=== PATIENT | male | born 1970 | race Caucasian/White ===

== ENCOUNTER 2017-07-18 13:01 | Emergency (ER) | payer OTHER ==
[2017-07-18 13:09] VITALS: RESP 18; O2SAT 100
--- NOTE | 2017-07-18 15:00 | C.PDOC ---
History Of Present Illness Pt was discharged from [facility] in [place], [place] today and was brought to [facility] to [place], but was left on the street. He then called 911 and EMS brought him here. He does not have any acute medical complaints. He only complains of chronic neuropathy symptoms. Time Seen by Provider: 07/18/17 13:10 Chief Complaint (Nursing): Medical Clearance History Per: Patient, EMS Onset/Duration Of Symptoms: Hrs (today) Current Symptoms Are (Timing): Still Present Severity: Mild Additional History Per: Prior Records Past Medical History Reviewed: Historical Data, Nursing Documentation, Vital Signs Vital Signs: Last Vital Signs Temp 98.9 F 07/18/17 13:06 Pulse 76 07/18/17 13:06 Resp 18 07/18/17 13:06 BP 109/75 07/18/17 13:06 Pulse Ox 100 07/18/17 13:06 - Medical History Other PMH: TBI Family History: States: Unknown Family Hx - Social History Hx Tobacco Use: Yes Hx Alcohol Use: Yes Hx Substance Use: No Review Of Systems Except As Marked, All Systems Reviewed And Found Negative. Constitutional: Negative for: Fever Cardiovascular: Negative for: Chest Pain Respiratory: Negative for: Cough, Shortness of Breath Gastrointestinal: Negative for: Vomiting, Abdominal Pain Neurological: Negative for: Seizures Psych: Negative for: Suicidal ideation Physical Exam - Physical Exam Appears: Non-toxic, No Acute Distress Skin: Normal Color, Warm, Dry Head: Atraumatic, Normacephalic Eye(s): bilateral: PERRL, EOMI Neck: Normal ROM, Supple Cardiovascular: Rhythm Regular Respiratory: Normal Breath Sounds, No Accessory Muscle Use Gastrointestinal/Abdominal: Soft, No Tenderness Extremity: Normal ROM Neurological/Psych: Oriented x3, Normal Motor ED Course And Treatment ECG: Interpreted By Me, Viewed By Me ECG Rhythm: Sinus Rhythm, Nonspecific Changes ECG Interpretation: No Acute Changes Rate From EC O2 Sat by Pulse Oximetry: 100 Pulse Ox Interpretation: Normal Progress Note: Pt will be transforted to [facility] by taxi. Reassessment Condition: Improved Disposition Counseled Patient/Family Regarding: Studies Performed, Diagnosis, Need For Followup - Disposition Referrals: Tyrel Ritter MD [Medical Doctor] - Nat Lora MD [Primary Care Provider] - Disposition: OTHER INSTITUTION Disposition Time: 15:04 Condition: STABLE Additional Instructions: Stay at a homeless long term. Follow up with your doctor. Return to the ER if you develop worsening of symptoms or if you have any other concerns. Forms: General Discharge Instructions - Clinical Impression Clinical Impression: Homelessness
[2017-07-18 16:17] VITALS: BP 131/60; PULSE 84; TEMP 98.5
--- NOTE | 2017-07-21 09:39 | CARD ---
APPROVED REPORT EKG Measurement Heart [id number] <Conclusion> Sinus bradycardia with sinus arrhythmia Otherwise normal ECG
== END 2017-07-18 16:16 | disposition designated cancer center or children's hospital (05) ==
LOC: C.ER 13:01
DX: Z59.0 Homelessness (principal)

== ENCOUNTER 2017-11-07 00:38 | Emergency (ER) | payer OTHER ==
--- NOTE | 2017-11-07 00:52 | C.PDOC ---
History Of Present Illness 47 year old male presents to the ED after he was not able to get into a alf and is looking for a place to stay. Patient was seen yesterday morning in the ED after being kicked out of his alf because of having lice, patient was showered and treated, Patient denied any physical complaints at this time. Time Seen by Provider: 11/07/17 00:51 Chief Complaint (Nursing): Medical Clearance History Per: Patient History/Exam Limitations: no limitations Onset/Duration Of Symptoms: Hrs Current Symptoms Are (Timing): Still Present Reports Recently: Seen In ED (yesterday) Recent travel outside of the [place]: No Additional History Per: Patient Past Medical History Reviewed: Historical Data, Nursing Documentation, Vital Signs Vital Signs: Last Vital Signs Temp 98.6 F 11/07/17 00:56 Pulse 78 11/07/17 00:56 Resp 20 11/07/17 00:56 BP 124/83 11/07/17 00:56 Pulse Ox 98 11/07/17 01:06 - Medical History PMH: Chronic Pain Denies: Diabetes, HTN, Hyperlipidemia Surgical History: No Surg Hx Family History: States: Unknown Family Hx - Social History Hx Tobacco Use: Yes Hx Alcohol Use: Yes Hx Substance Use: Yes ([facility]) Review Of Systems Constitutional: Negative for: Fever, Chills Cardiovascular: Negative for: Chest Pain Respiratory: Negative for: Shortness of Breath Gastrointestinal: Negative for: Abdominal Pain Skin: Negative for: Rash Neurological: Negative for: Weakness, Numbness Physical Exam - Physical Exam Appears: Non-toxic, No Acute Distress Skin: Warm, Dry Head: Normacephalic Eye(s): bilateral: Normal Inspection Nose: No Discharge Oral Mucosa: Moist Neck: Normal ROM, Supple Chest: Symmetrical Cardiovascular: Rhythm Regular, No Murmur Respiratory: Normal Breath Sounds, No Rales, No Rhonchi, No Wheezing Gastrointestinal/Abdominal: Soft, No Tenderness, No Guarding, No Rebound Extremity: Normal ROM, No Tenderness, No Swelling Neurological/Psych: Oriented x3 Gait: Steady ED Course And Treatment O2 Sat by Pulse Oximetry: 98 (ON RA) Pulse Ox Interpretation: Normal Reevaluation Time: 04:34 Reassessment Condition: Improved Disposition Counseled Patient/Family Regarding: Studies Performed, Diagnosis - Disposition Referrals: [facility] [Outside] Disposition: HOME/ ROUTINE Disposition Time: 00:52 Condition: FAIR Forms: [facility] (Irish), General Discharge Instructions - Clinical Impression Clinical Impression: Homelessness - Scribe Statement The provider has reviewed the documentation as recorded by the Scribe Andre Best All medical record entries made by the Hectoribe were at my direction and personally dictated by me. I have reviewed the chart and agree that the record accurately reflects my personal performance of the history, physical exam, medical decision making, and the department course for this patient. I have also personally directed, reviewed, and agree with the discharge instructions and disposition.
[2017-11-07 01:00] VITALS: O2SAT 98
[2017-11-07 05:18] VITALS: BP 127/73; PULSE 73; RESP 18; TEMP 97.6
== END 2017-11-07 05:26 | disposition home or self-care (01) ==
LOC: C.ER 00:38
DX: Z59.0 Homelessness (principal)